=== PATIENT | male | born 1970 | race Caucasian/White ===

== ENCOUNTER 2016-12-17 10:51 | Inpatient (IN) | payer MEDICAID, OTHER ==
[~2016-12-17] VITALS: Ht 167.6 cm; Wt 70.0 kg
[2016-12-17] VITALS (7 sets, daily range): BP systolic 102–151; BP diastolic 59–89; PULSE 48–65; RESP 18–20; TEMP 98.7; Ht 167.6 cm; Wt 70.0 kg
[~2016-12-17 10:51] MED LIST: ASPI-781 PO; ATOR40TA68 PO; CLOP75TA27 PO; INSU100C3 SC; LANT3I SC; MECL25TA2 PO; METF500T4 PO; METO-448 PO
[2016-12-17 11:18] LABS: BASOPHILS % 0.5 % (0.0-2.0); EOSINOPHILS % 0.3 % (0.0-7.0); HEMATOCRIT 43.3 % (42.0-52.0); HEMOGLOBIN 15.6 g/dl (14.0-18.0); LYMPHOCYTES # 1.3 10^3/ul (0.8-2.9); LYMPHOCYTES % 16.6 % (15.0-51.0); MEAN CORPUSCULAR HEMOGLOBIN 30.4 pg (29.0-33.0); MEAN CORPUSCULAR VOLUME 84.4 fl (82.0-101.0); MONOCYTE # 0.3 10^3/ul (0.3-0.9); MONOCYTES % 4.4 % (0.0-11.0); NEUTROPHILS % 77.9 % (39.0-77.0); PLATELET COUNT 202 10^3/UL (140-415); RED BLOOD COUNT 5.13 10^6/ul (4.70-6.10); RED CELL DISTRIBUTION WIDTH 12.1 % (11.5-14.5); WHITE BLOOD COUNT 7.7 10^3/ul (4.8-10.8)
[2016-12-17 11:36] LABS: INR 0.96; PROTIME 12.8 Sec (12.2-14.2)
[2016-12-17 11:37] LABS: PARTIAL THROMBOPLASTIN TIME 23.1 Sec (25.0-35.0)
[2016-12-17 11:43] LABS: ALANINE AMINOTRANSFERASE 34 IU/L (13-69); ALBUMIN 4.5 g/dl (3.3-4.9); ALBUMIN/GLOBULIN RATIO 1.55; ALKALINE PHOSPHATASE 103 IU/L (42-121); ANION GAP 21 (8-16); ASPARTATE AMINO TRANSFERASE 19 IU/L (15-46); BILIRUBIN,INDIRECT 0.6 mg/dl (0-1.1); BILIRUBIN,TOTAL 0.6 mg/dl (0.2-1.3); BLOOD UREA NITROGEN 16 mg/dl (7-20); CALCIUM 9.5 mg/dl (8.4-10.2); CARBON DIOXIDE 24 mmol/L (21-31); CHLORIDE 104 mmol/L (97-110); GLUCOSE 306 mg/dl (70-220); POTASSIUM 3.5 mmol/L (3.5-5.1); SODIUM 145 mmol/L (135-144); TOTAL PROTEIN 7.4 g/dl (6.1-8.1)
--- NOTE | 2016-12-17 11:51 | RADRPT ---
PROCEDURE: XR Chest. CLINICAL INDICATION: Stroke. Dyspnea. TECHNIQUE: Single frontal chest x-ray. COMPARISON: 03/06/2015 FINDINGS: The lungs are clear of acute infiltrates, edema, effusions, or masses.. The cardiomediastinal silho uette is unremarkable. The osseous structures are intact. IMPRESSION: No acute cardiopulmonary disease. RPTAT: GG .Fabrice Almanza MD, Date Time Electronically viewed and signed by .Fabrice Almanza MD, on 12/17/2016 11:51 .L/
--- NOTE | 2016-12-17 11:57 | RADRPT ---
PROCEDURE: CT Head without intravenous contrast. CLINICAL INDICATION: Possible stroke. Headache, dizziness, nausea. COMPARISON: None relevant listed. TECHNIQUE: Axial CT images from skull base to vertex with coronal and sagittal reformats. DOSE: The estimated administered radiation dose was CTDI vol = 43 mGy and DLP = 630 mGy-cm. One or more of the following dose reduction techniques were used: automated exposure control, adjustment of the mA and/or kV according to patient size, or use of iterative reconstruction. FINDINGS: Parenchyma: No acute hemorrhage, large territorial infarction, or mass. Subtle mineralization within the right lentiform nucleus with average density 35 Hounsfield (series 2, image 9). Mild generalize d cerebral and cerebellar volume loss. Ventricles: No hydrocephalus or ventricular effacement. Extra-axial spaces: No herniation or midline shift. Paranasal sinuses: Clear. Mastoid air cells: Clear. Visualized orbits: Normal. Vessels: Mild atherosclerotic plaque is present. Bones: Normal. Extracranial soft tissues: Normal. Additional comment: None. IMPRESSION: No acute hemorrhage or large territorial infarction. RPTAT: PP Physician Abhilash Date Time Electronically viewed and signed by Physician Abhilash on 12/17/2016 11:56 LG/
[2016-12-17 12:03] LABS: TROPONIN-I < 0.012 ng/ml (0.00-0.12)
[2016-12-17] MEDS ORDERED: ASPIRIN 325 MG TAB PO ONE (13:00)
[2016-12-17] MEDS ORDERED: SOD CHLORIDE 0.9% 1,000 ML IV STA (13:45)
--- NOTE | 2016-12-17 13:45 | ERA ---
ER Documentation Chief Complaint Date/Time DATE: 12/17/16 TIME: 13:39 Chief Complaint Weakness HPI 46-year-old male with a history of hypertension, diabetes mellitus type 2, coronary artery disease status post PCI, vertigo and CVA with mild residual left facial numbness presents the ED complaining of dizziness, weakness and ataxia. Upon awakening this morning felt dizzy and had difficulty walking. He went to meet family who noticed that he was stumbling and then fell forward hitting the front of his head. There was no loss of consciousness. Denies neck pain. Complains of ongoing dizziness and lightheadedness which is not exacerbated by head movement. No visual changes, focal weakness or numbness. Patient feels that his speech is not as clear as usual but family feels he is at baseline. Denies tinnitus or hearing changes. No chest pain or palpitations. No abdominal pain, nausea or vomiting. No URI symptoms or cough. ROS All systems reviewed and are negative except as per history of present illness. Medications Home Meds Active Scripts Meclizine Hcl* (Antivert*) 25 Mg Tablet, 25 MG PO Q6H Y for dizziness, #20 TAB Prov:JERRY ESCOTO MD 04/03/15 Atorvastatin* (Atorvastatin*) 40 Mg Tablet, 40 MG PO HS for 30 Days, TAB Prov:ELISABETH SIDHU NP 03/08/15 Metformin Hcl* (Metformin Hcl*) 500 Mg Tablet, 500 MG PO AC MEALS AND BEDTIME for 30 Days, TAB Prov:ELISABETH SIDHU NP 03/08/15 Insulin Aspart (Novolog) 100 U/Ml Cartridge, 5 UNITS SC AC MEALS for 30 Days, EA Prov:ELISABETH SIDHU NP 03/08/15 Insulin Glargine* (Lantus*) 100 Unit/Ml Soln, 20 UNIT SC HS for 30 Days Prov:ELISABETH SIDHU NP 03/08/15 Metoprolol Tartrate* (Lopressor*) 25 Mg Tab, 25 MG PO BID for 30 Days, TAB Prov:ELISABETH SIDHU NP 03/08/15 Clopidogrel Bisulfate (Clopidogrel) 75 Mg Tab, 75 MG PO DAILY for 30 Days Prov:ELISABETH SIDHU NP 03/08/15 Aspirin* (Ecotrin*) 325 Mg Tabec, 325 MG PO DAILY for 30 Days Prov:ELISABETH SIDHU NP 03/08/15 Allergies Allergies: Coded Allergies: No Known Allergy (Unverified , 03/06/15) PMhx/Soc Reviewed in chart. As per HPI. History of Surgery: Yes (Stent x2) Anesthesia Reaction: No Hx Neurological Disorder: Yes (CVA in 2016) Hx Respiratory Disorders: No Hx Cardiac Disorders: Yes (STEMI x2) Hx Psychiatric Problems: No Hx Miscellaneous Medical Probl: No Hx Alcohol Use: No Hx Substance Use: No Hx Tobacco Use: Yes Smoking Status: Current some day smoker FmHx No stroke, cancer or sudden cardiac Physical Exam Vitals Vital Signs Date Time Temp Pulse Resp B/P Pulse Ox O2 Delivery O2 Flow Rate FiO2 12/17/16 11:29 97.7 78 19 139/103 100 12/17/16 11:10 Nasal Cannula Physical Exam Const: Alert, cooperative. Moderate distress. Head: Forehead abrasion. Negative aguirre sign. Eyes: Normal Conjunctiva. Pupils equal reactive to light, extraocular movements are intact. No nystagmus. ENT: Normal External Ears, Nose and Mouth. Neck: Full range of motion. Nontender. No meningismus. No JVD.Carotids 2+ bilaterally without bruits. Resp: Clear to auscultation bilaterally Cardio: Regular rate and rhythm, no murmurs Abd: Soft, non tender, non distended. Normal bowel sounds, No masses. Skin: No petechiae or rashes Back: No midline or flank tenderness Ext: No cyanosis, or edema. Pulses 4+ in all extremities Neur: Awake and alert. Cranial nerves II through XII are grossly intact. No pronator drift. Ataxic gait Psych: Normal Mood and Affect Result Diagram: 12/17/16 1055 12/17/16 1055 Results 24 hrs Laboratory Tests Test 12/17/16 10:55 12/17/16 11:19 White Blood Count 7.710^3/ul Red Blood Count 5.1310^6/ul Hemoglobin 15.6g/dl Hematocrit 43.3% Mean Corpuscular Volume 84.4fl Mean Corpuscular Hemoglobin 30.4pg Mean Corpuscular Hemoglobin Concent 36.0g/dl Red Cell Distribution Width 12.1% Platelet Count 76592^3/UL Mean Platelet Volume 11.0fl Neutrophils % 77.9% Lymphocytes % 16.6% Monocytes % 4.4% Eosinophils % 0.3% Basophils % 0.5% Nucleated Red Blood Cells % 0.0/100WBC Neutrophils # 6.010^3/ul Lymphocytes # 1.310^3/ul Monocytes # 0.310^3/ul Eosinophils # 0.010^3/ul Basophils # 0.010^3/ul Nucleated Red Blood Cells # 0.010^3/ul Prothrombin Time 12.8Sec Prothrombin Time Ratio 1.0 INR International Normalized Ratio 0.96 Activated Partial Thromboplast Time 23.1Sec Sodium Level 145mmol/L Potassium Level 3.5mmol/L Chloride Level 104mmol/L Carbon Dioxide Level 24mmol/L Anion Gap 21 Blood Urea Nitrogen 16mg/dl Creatinine 0.90mg/dl Glucose Level 306mg/dl Calcium Level 9.5mg/dl Total Bilirubin 0.6mg/dl Direct Bilirubin 0.00mg/dl Indirect Bilirubin 0.6mg/dl Aspartate Amino Transf (AST/SGOT) 19IU/L Alanine Aminotransferase (ALT/SGPT) 34IU/L Alkaline Phosphatase 103IU/L Troponin I < 0.012ng/ml Total Protein 7.4g/dl Albumin 4.5g/dl Globulin 2.90g/dl Albumin/Globulin Ratio 1.55 Bedside Glucose 297mg/dL Current Medications Medications (Trade) Dose Ordered Sig/Wendi Route PRN Reason Start Time Stop Time Status Last Admin Dose Admin Aspirin (Aspirin) 325 mg ONCE ONCE PO 12/17/16 13:00 12/17/16 13:01 DC 12/17/16 13:03 Ondansetron HCl (Zofran Inj) 4 mg ER BRIDGE PRN IV NAUSEA AND/OR VOMITING 12/17/16 14:00 12/18/16 13:59 Acetaminophen 650 mg 650 mg ER BRIDGE PRN PO MILD PAIN/FEVER 12/17/16 14:00 12/18/16 13:59 Sodium Chloride (NS) 1,000 ml @ 1,000 mls/hr Q1H STAT IV 12/17/16 13:45 12/17/16 14:44 DC EKG: TIME: 10:50. Sinus rhythm. Q waves in 2 [address]VF[address] No acute ST segment elevation or depression. No ectopy. EP Interpretation: Abnormal EKG. IMAGING: PROCEDURE: CT Head without intravenous contrast. CLINICAL INDICATION: Possible stroke. Headache, dizziness, nausea. COMPARISON: None relevant listed. TECHNIQUE: Axial CT images from skull base to vertex with coronal and sagittal reformats. DOSE: The estimated administered radiation dose was CTDI vol = 43 mGy and DLP = 630 mGy-cm. One or more of the following dose reduction techniques were used: automated exposure control, adjustment of the mA and/or kV according to patient size, or use of iterative reconstruction. FINDINGS: Parenchyma: No acute hemorrhage, large territorial infarction, or mass. Subtle mineralization within the right lentiform nucleus with average density 35 Hounsfield (series 2, image 9). Mild generalized cerebral and cerebellar volume loss. Ventricles: No hydrocephalus or ventricular effacement. Extra-axial spaces: No herniation or midline shift. Paranasal sinuses: Clear. Mastoid air cells: Clear. Visualized orbits: Normal. Vessels: Mild atherosclerotic plaque is present. Bones: Normal. Extracranial soft tissues: Normal. Additional comment: None. IMPRESSION: No acute hemorrhage or large territorial infarction. RPTAT: PP Physician Abhilash Date Time Electronically viewed and signed by Physician Abhilash on 12/17/2016 11: 56 LG/ Procedures/MDM DOCUMENTS REVIEWED: ED nurse, prior ED, prior records MEDICAL DECISION MAKIN-year-old male with a history of hypertension, coronary artery disease status post PCI, vertigo and CVA with mild residual left facial numbness presents the ED complaining of dizziness, weakness and ataxia. H/O vertigo but presenting symptoms not consistent with peripheral vertigo. Possible CVA. As patient awoke with the symptoms, last known normal is greater than 12 hours ago when he went to sleep, hence no indication for thrombolytics or endovascular intervention. No CT evidence of acute hemorrhage, infarct, mass or hydrocephalus. No cardiac dysrhythmia. Diabetes out of control without DKA or HONK treated with IV hydration. Admit to telemetry for further evaluation and management including MRI, carotid dopplers and neuro consultation. CRITICAL CARE TIME: Due to the high probability of sudden clinically significant neurologic deterioration, this patient with weakness, ataxia and possible acute CVA required multiple, frequent reevaluations of vital signs and response to therapy. Additional critical care time was spent in interpretations of relevant clinical data, obtaining supplemental history from family, review of medical records and consultation with the admitting physician Dr. Cornelius Bautista. TOTAL CRITICAL CARE TIME:35 minutes not including other separately reportable procedures. Counseled patient and family regarding diagnosis, diagnostic results and plan for admission. CALLS/CONSULTS: Time 12:55, Dr. Cornelius Bautista, Recommends admission to telemetry. PATIENT CARE TRANSITIONED: Time: 13:25, Dr. Cornelius Bautista. Departure Diagnosis: Primary Impression: Acute weakness Additional Impressions: Ataxia Diabetes mellitus out of control Qualified Code: E11.8 - Uncontrolled type 2 diabetes mellitus with complication, without long-term current use of insulin H/O right coronary artery stent placement H/O: CVA (cerebrovascular accident) Condition: Serious BRIANA BURNS MD Dec 17, 2016 13:45
[2016-12-17] MEDS ORDERED: ONDANSETRON 4 MG INJ IV PRN (14:00)
[2016-12-17] MEDS ORDERED: ACETAMINOPHEN 325 MG TAB PO PRN (14:00)
[2016-12-17] MEDS ORDERED: INSULIN ASPART [NOVOLOG] 3 ML PEN SC SCH (17:25)
[2016-12-17] MEDS ORDERED: GLUCOSE GEL 15 GRAM TUBE PO PRN ×2 (17:30)
[2016-12-17] MEDS ORDERED: GLUCAGON 1 MG INJ IM PRN (17:30)
[2016-12-17] MEDS ORDERED: GLUCOSE GEL 15 GRAM TUBE BUCCAL PRN (17:30)
[2016-12-17] MEDS ORDERED: DEXTROSE 50% 50 ML SYRINGE IV PRN ×2 (17:30)
[2016-12-17] MEDS ORDERED: MECLIZINE 25 MG TAB PO PRN (17:30)
[2016-12-17] MEDS: INSULIN ASPART [NOVOLOG] 3 ML PEN SC SCH ×3 (18:50→21:00)
[2016-12-17] MEDS ORDERED: GLIP5TAB13 PO (19:00)
[2016-12-17] MEDS ORDERED: EZET10TA3 PO (19:00)
[2016-12-17] MEDS ORDERED: GABA300C16 PO (19:00)
[2016-12-17] MEDS: ATORVASTATIN 40 MG TAB PO SCH (21:27)
[2016-12-17] MEDS: GABAPENTIN 300 MG CAP PO SCH (21:27)
[2016-12-17] MEDS: METOPROLOL 25 MG TAB PO SCH (21:27)
[2016-12-17] MEDS: INSULIN GLARGINE [LANtus] 3 ML PEN SC SCH (21:40)
[2016-12-18] VITALS (12 sets, daily range): BP systolic 102–187; BP diastolic 59–79; PULSE 54–71; RESP 16–20
[2016-12-18] MEDS ORDERED: ACCU-CHEK XX SCH (02:00)
[2016-12-18] MEDS: ACCU-CHEK XX SCH (02:00)
[2016-12-18 06:27] LABS: BASOPHIL # 0.1 10^3/ul (0.0-0.1); BASOPHILS % 0.6 % (0.0-2.0); EOSINOPHILS # 0.1 10^3/ul (0.0-0.5); EOSINOPHILS % 0.9 % (0.0-7.0); HEMATOCRIT 42.7 % (42.0-52.0); HEMOGLOBIN 14.5 g/dl (14.0-18.0); LYMPHOCYTES # 2.2 10^3/ul (0.8-2.9); LYMPHOCYTES % 27.3 % (15.0-51.0); MEAN CORPUSCULAR HEMOGLOBIN 29.7 pg (29.0-33.0); MEAN CORPUSCULAR VOLUME 87.3 fl (82.0-101.0); MEAN PLATELET VOLUME 10.7 fl (7.4-10.4); MONOCYTE # 0.6 10^3/ul (0.3-0.9); MONOCYTES % 7.2 % (0.0-11.0); NEUTROPHIL # 5.2 10^3/ul (1.6-7.5); NEUTROPHILS % 63.8 % (39.0-77.0); PLATELET COUNT 188 10^3/UL (140-415); RED BLOOD COUNT 4.89 10^6/ul (4.70-6.10); RED CELL DISTRIBUTION WIDTH 12.5 % (11.5-14.5); WHITE BLOOD COUNT 8.1 10^3/ul (4.8-10.8)
[2016-12-18 06:47] LABS: CALCIUM 9.1 mg/dl (8.4-10.2); CREATININE 0.92 mg/dl (0.61-1.24)
[2016-12-18 06:59] LABS: POTASSIUM 3.4 mmol/L (3.5-5.1)
[2016-12-18] MEDS: INSULIN ASPART [NOVOLOG] 3 ML PEN SC SCH ×7 (07:55→21:00)
[2016-12-18] MEDS: ASPIRIN (EC) 325 MG TAB PO SCH (08:15)
[2016-12-18] MEDS: GABAPENTIN 300 MG CAP PO SCH ×2 (08:15→20:17)
[2016-12-18] MEDS: EZETIMIBE 10 MG TAB PO SCH (08:15)
[2016-12-18] MEDS: CLOPIDOGREL 75 MG TAB PO SCH (08:15)
[2016-12-18] MEDS: METOPROLOL 25 MG TAB PO SCH ×2 (08:16→20:17)
--- NOTE | 2016-12-18 13:39 | HP ---
Date/Time of Note Date/Time of Note DATE: 12/18/16 TIME: 13:35 Assessment/Plan VTE Prophylaxis VTE Prophylaxis Intervention: other Lines/Catheters [facility] Saline Lock Urinary Cath still in place: No Assessment/Plan Chief Complaint/Hosp Course 1) ataxia - head CT negative - await head MRI - consult neurology 2) diabetes - monitor blood sugar, continue home meds 3) CAD - appears stable at this time Problems: HPI/ROS Admit Date/Time Admit Date/Time Dec 17, 2016 at 13:37 Hx of Present Illness Patient with hypertension, diabetes, coronary artery disease, previous cerebrovascular accident comes in with ataxia and dizziness. Patient denies any loss of consciousness. Patient's previous stroke caused weakness of left side. Patient is currently doing better, able to ambulate. PMH/Family/Social Past Medical History Medical History: coronary artery disease, diabetes, hypertension Social History Alcohol Use: rarely Smoking Status: Current some day smoker Exam/Review of Systems Vital Signs Vitals Vital Signs Date Time Temp Pulse Resp B/P Pulse Ox O2 Delivery O2 Flow Rate FiO2 12/18/16 12:39 57 12/18/16 11:27 98.6 18 118/79 97 12/17/16 15:55 Room Air Intake and Output 12/17/16 12/17/16 12/18/16 15:00 23:00 07:00 Intake Total 250 ml Output Total 350 ml Balance -100 ml Exam Constitutional: well developed Head: atraumatic, normocephalic Neck: supple Respiratory: clear to auscultation Cardiovascular: regular rate and rhythm Gastrointestinal: non-tender, soft Extremities: normal pulses Labs Result Diagram: 12/18/16 0556 12/18/16 0556 Medications Medications Current Medications Aspirin (Ecotrin) 325 mg DAILY PO Last administered on 12/18/16 08:15; Admin Dose 325 MG; Start 12/18/16 at 09:00 Atorvastatin Calcium (Lipitor) 40 mg HS PO Last administered on 12/17/16 21:27 ; Admin Dose 40 MG; Start 12/17/16 at 21:00 Clopidogrel Bisulfate (plaVIX) 75 mg DAILY PO Last administered on 12/18/16 08: 15; Admin Dose 75 MG; Start 12/18/16 at 09:00 Insulin Glargine (Lantus) 20 unit HS SC Last administered on 12/17/16 21:40; Admin Dose 20 UNIT; Start 12/17/16 at 21:00 Meclizine HCl (Antivert) 25 mg Q6H PRN PO dizziness; Start 12/17/16 at 17:30 Metoprolol Tartrate (Lopressor) 25 mg BID PO Last administered on 12/18/16 08: 16; Admin Dose 25 MG; Start 12/17/16 at 21:00 Diagnostic Test (Pha) (Accu-Chek) 1 ea 02 XX ; Start 12/18/16 at 02:00 Miscellaneous Information 1 ea NOTE XX ; Start 12/17/16 at 17:30 Glucose (Glutose) 15 gm Q15M PRN PO DECREASED GLUCOSE; Start 12/17/16 at 17:30 Glucose (Glutose) 22.5 gm Q15M PRN PO DECREASED GLUCOSE; Start 12/17/16 at 17:30 Dextrose (D50w Syringe) 25 ml Q15M PRN IV DECREASED GLUCOSE; Start 12/17/16 at 17:30 Dextrose (D50w Syringe) 50 ml Q15M PRN IV DECREASED GLUCOSE; Start 12/17/16 at 17:30 Glucagon (Glucagen) 1 mg Q15M PRN IM DECREASED GLUCOSE; Start 12/17/16 at 17:30 Glucose (Glutose) 15 gm Q15M PRN BUCCAL DECREASED GLUCOSE; Start 12/17/16 at 17: 30 EZETIMIBE (Zetia) 10 mg DAILY PO Last administered on 12/18/16 08:15; Admin Dose 10 MG; Start 12/18/16 at 09:00 Gabapentin (Neurontin) 300 mg BID PO Last administered on 12/18/16 08:15; Admin Dose 300 MG; Start 12/17/16 at 21:00 ARASH COBOS Dec 18, 2016 13:39
--- NOTE | 2016-12-18 19:43 | RADRPT ---
PROCEDURE: MR Brain with contrast. CLINICAL INDICATION: Brain lab preoperative evaluation. Weakness and ataxia TECHNIQUE: Limited postcontrast T1-weighted axial imaging number for preoperative planning. 10 ml M agnevist nonionic intravenous contrast was administered without complication. COMPARISON: None FINDINGS: Wedge-shaped focus of restricted diffusion in the right posterior inferior cerebellar hemisphere (PI CA territory) compatible with acute / early subacute ischemic infarct. No other evidence of cerebra l infarction. Remote lacunar infarct in the left cerebellar hemisphere. There is no evidence of intr acranial hemorrhage, mass effect, or midline shift. No extra-axial fluid collections are seen. No hypointense signal abnormalities are seen on the GRE images to suggest the presence of blood degr adation products. The remaining brain parenchyma is normal in signal intensity and morphology with preservation of gra y white differentiation . Age appropriate size of the ventricles and subarachnoid spaces. The remaining posterior fossa contents, brainstem, seventh - eighth cranial nerve complexes, pituita ry axis, orbits, paranasal sinuses, and mastoid air cells are unremarkable. Normal flow voids are visible in the proximal intracranial arteries and dural sinuses, indicating pa tency. IMPRESSION: 1. Acute / early subacute infarct right inferior cerebellar hemisphere (PICA territory). This of ed patti, mass effect, or shift. No hemorrhagic transformation. Of the left cerebellar hemisphere lacun ar infarct. 2. No other acute intracranial abnormality or pathologic enhancement. RPTAT:AAJJ Physician Dnonie Date Time Electronically viewed and signed by Physician Donnie on 12/18/2016 19:42 MARKIE/
[2016-12-18] MEDS: ATORVASTATIN 40 MG TAB PO SCH (20:17)
[2016-12-18] MEDS: INSULIN GLARGINE [LANtus] 3 ML PEN SC SCH (20:21)
[2016-12-19] VITALS (11 sets, daily range): BP systolic 114–161; BP diastolic 69–82; PULSE 51–76; RESP 16–18
[2016-12-19] MEDS: ACCU-CHEK XX SCH (02:00)
[2016-12-19] MEDS: INSULIN ASPART [NOVOLOG] 3 ML PEN SC SCH ×7 (07:55→20:14)
[2016-12-19] MEDS: ASPIRIN (EC) 325 MG TAB PO SCH (08:27)
[2016-12-19] MEDS: CLOPIDOGREL 75 MG TAB PO SCH (08:27)
[2016-12-19] MEDS: GABAPENTIN 300 MG CAP PO SCH ×2 (08:27→20:11)
[2016-12-19] MEDS: EZETIMIBE 10 MG TAB PO SCH (08:28)
[2016-12-19] MEDS: METOPROLOL 25 MG TAB PO SCH ×2 (08:28→20:12)
--- NOTE | 2016-12-19 11:47 | PN ---
Date/Time of Note Date/Time of Note DATE: 12/19/16 TIME: 11:46 Assessment/Plan VTE Prophylaxis VTE Prophylaxis Intervention: other Lines/Catheters IV [facility] Saline Lock Urinary Cath still in place: No Assessment/Plan Chief Complaint/Hosp Course 1) ataxia - head MRI show cerebellar CVA - await neurology consult 2) diabetes - monitor blood sugar, continue home meds 3) CAD - appears stable at this time Problems: Subjective 24 Hr Interval Summary Free Text/Dictation Patient wants to leave Exam/Review of Systems Vital Signs Vitals Vital Signs Date Time Temp Pulse Resp B/P Pulse Ox O2 Delivery O2 Flow Rate FiO2 12/19/16 11:21 98.5 66 18 121/73 97 12/17/16 15:55 Room Air Intake and Output 12/18/16 12/18/16 12/19/16 15:00 23:00 07:00 Intake Total 450 ml 300 ml Output Total 650 ml Balance -200 ml 300 ml Exam Constitutional: well developed Head: atraumatic, normocephalic Neck: supple Respiratory: clear to auscultation Cardiovascular: regular rate and rhythm Gastrointestinal: non-tender, soft Extremities: normal pulses Results Result Diagram: 12/18/16 0556 12/18/16 0556 Results 24 hrs Laboratory Tests Test 12/18/16 11:53 12/18/16 17:14 12/18/16 20:16 12/19/16 07:54 Bedside Glucose 188 195 145 132 Medications Medications Current Medications Aspirin (Ecotrin) 325 mg DAILY PO Last administered on 12/19/16 08:27; Admin Dose 325 MG; Start 12/18/16 at 09:00 Atorvastatin Calcium (Lipitor) 40 mg HS PO Last administered on 12/18/16 20:17 ; Admin Dose 40 MG; Start 12/17/16 at 21:00 Clopidogrel Bisulfate (plaVIX) 75 mg DAILY PO Last administered on 12/19/16 08: 27; Admin Dose 75 MG; Start 12/18/16 at 09:00 Insulin Glargine (Lantus) 20 unit HS SC Last administered on 12/18/16 20:21; Admin Dose 20 UNIT; Start 12/17/16 at 21:00 Meclizine HCl (Antivert) 25 mg Q6H PRN PO dizziness; Start 12/17/16 at 17:30 Metoprolol Tartrate (Lopressor) 25 mg BID PO Last administered on 12/19/16 08: 28; Admin Dose 25 MG; Start 12/17/16 at 21:00 Diagnostic Test (Pha) (Accu-Chek) 1 ea 02 XX ; Start 12/18/16 at 02:00 Miscellaneous Information 1 ea NOTE XX ; Start 12/17/16 at 17:30 Glucose (Glutose) 15 gm Q15M PRN PO DECREASED GLUCOSE; Start 12/17/16 at 17:30 Glucose (Glutose) 22.5 gm Q15M PRN PO DECREASED GLUCOSE; Start 12/17/16 at 17:30 Dextrose (D50w Syringe) 25 ml Q15M PRN IV DECREASED GLUCOSE; Start 12/17/16 at 17:30 Dextrose (D50w Syringe) 50 ml Q15M PRN IV DECREASED GLUCOSE; Start 12/17/16 at 17:30 Glucagon (Glucagen) 1 mg Q15M PRN IM DECREASED GLUCOSE; Start 12/17/16 at 17:30 Glucose (Glutose) 15 gm Q15M PRN BUCCAL DECREASED GLUCOSE; Start 12/17/16 at 17: 30 EZETIMIBE (Zetia) 10 mg DAILY PO Last administered on 12/19/16 08:28; Admin Dose 10 MG; Start 12/18/16 at 09:00 Gabapentin (Neurontin) 300 mg BID PO Last administered on 12/19/16 08:27; Admin Dose 300 MG; Start 12/17/16 at 21:00 ARASH COBOS Dec 19, 2016 11:47
[2016-12-19 15:08] LABS: CALCIUM 9.1 mg/dl (8.4-10.2); CHOL/HDL RATIO 5.1 RATIO; CREATININE 0.83 mg/dl (0.61-1.24); POTASSIUM 4.3 mmol/L (3.5-5.1)
[2016-12-19] MEDS: ATORVASTATIN 40 MG TAB PO SCH (20:11)
[2016-12-19] MEDS: INSULIN GLARGINE [LANtus] 3 ML PEN SC SCH (20:14)
[2016-12-20 01:01] VITALS: PULSE 64
[2016-12-20] MEDS: ACCU-CHEK XX SCH (02:00)
[2016-12-20 04:00] VITALS: BP 120/73; RESP 18
[2016-12-20 04:41] VITALS: PULSE 62
[2016-12-20 07:40] VITALS: BP 132/74; RESP 18
[2016-12-20] MEDS: INSULIN ASPART [NOVOLOG] 3 ML PEN SC SCH ×2 (07:56)
[2016-12-20] MEDS: EZETIMIBE 10 MG TAB PO SCH (08:15)
[2016-12-20] MEDS: CLOPIDOGREL 75 MG TAB PO SCH (08:15)
[2016-12-20] MEDS: ASPIRIN (EC) 325 MG TAB PO SCH (08:15)
[2016-12-20] MEDS: GABAPENTIN 300 MG CAP PO SCH (08:15)
[2016-12-20] MEDS: METOPROLOL 25 MG TAB PO SCH (08:16)
[2016-12-20 08:30] VITALS: PULSE 61
[2016-12-20 11:20] VITALS: BP 134/84; RESP 18
--- NOTE | 2016-12-20 11:48 | PN ---
Date/Time of Note Date/Time of Note DATE: 12/20/16 TIME: 11:46 Assessment/Plan VTE Prophylaxis VTE Prophylaxis Intervention: other Lines/Catheters IV [facility] Type (from [facility]): Saline Lock Urinary Cath still in place: No Assessment/Plan Chief Complaint/Hosp Course 1) ataxia - head MRI show cerebellar CVA - await neurology consult 2) diabetes - monitor blood sugar, continue home meds 3) CAD - appears stable at this time Problems: Subjective 24 Hr Interval Summary Free Text/Dictation Patient is frustrated and wants to go home. Exam/Review of Systems Vital Signs Vitals Vital Signs Date Time Temp Pulse Resp B/P Pulse Ox O2 Delivery O2 Flow Rate FiO2 12/20/16 11:20 98.5 81 18 134/84 97 12/17/16 15:55 Room Air Intake and Output 12/19/16 12/19/16 12/20/16 15:00 23:00 07:00 Intake Total 1000 ml 500 ml Balance 1000 ml 500 ml Exam Constitutional: well developed Head: atraumatic, normocephalic Neck: supple Respiratory: clear to auscultation Cardiovascular: regular rate and rhythm Gastrointestinal: non-tender, soft Extremities: normal pulses Results Result Diagram: 12/18/16 0556 12/19/16 1426 Results 24 hrs Laboratory Tests Test 12/19/16 14:26 12/19/16 20:10 12/20/16 02:09 12/20/16 07:49 Sodium Level 143 Potassium Level 4.3 Chloride Level 103 Carbon Dioxide Level 27 Anion Gap 17 H Blood Urea Nitrogen 12 Creatinine 0.83 Glucose Level 195 Calcium Level 9.1 Triglycerides Level 101 Cholesterol Level 154 LDL Cholesterol, Calculated 104 HDL Cholesterol 30 Cholesterol/HDL Ratio 5.1 Bedside Glucose 232 H 181 176 Medications Medications Current Medications Aspirin (Ecotrin) 325 mg DAILY PO Last administered on 12/20/16 08:15; Admin Dose 325 MG; Start 12/18/16 at 09:00 Atorvastatin Calcium (Lipitor) 40 mg HS PO Last administered on 12/19/16 20:11 ; Admin Dose 40 MG; Start 12/17/16 at 21:00 Clopidogrel Bisulfate (plaVIX) 75 mg DAILY PO Last administered on 12/20/16 08: 15; Admin Dose 75 MG; Start 12/18/16 at 09:00 Insulin Glargine (Lantus) 20 unit HS SC Last administered on 12/19/16 20:14; Admin Dose 20 UNIT; Start 12/17/16 at 21:00 Meclizine HCl (Antivert) 25 mg Q6H PRN PO dizziness; Start 12/17/16 at 17:30 Metoprolol Tartrate (Lopressor) 25 mg BID PO Last administered on 12/20/16 08: 16; Admin Dose 25 MG; Start 12/17/16 at 21:00 Diagnostic Test (Pha) (Accu-Chek) 1 ea 02 XX ; Start 12/18/16 at 02:00 Miscellaneous Information 1 ea NOTE XX ; Start 12/17/16 at 17:30 Glucose (Glutose) 15 gm Q15M PRN PO DECREASED GLUCOSE; Start 12/17/16 at 17:30 Glucose (Glutose) 22.5 gm Q15M PRN PO DECREASED GLUCOSE; Start 12/17/16 at 17:30 Dextrose (D50w Syringe) 25 ml Q15M PRN IV DECREASED GLUCOSE; Start 12/17/16 at 17:30 Dextrose (D50w Syringe) 50 ml Q15M PRN IV DECREASED GLUCOSE; Start 12/17/16 at 17:30 Glucagon (Glucagen) 1 mg Q15M PRN IM DECREASED GLUCOSE; Start 12/17/16 at 17:30 Glucose (Glutose) 15 gm Q15M PRN BUCCAL DECREASED GLUCOSE; Start 12/17/16 at 17: 30 EZETIMIBE (Zetia) 10 mg DAILY PO Last administered on 12/20/16 08:15; Admin Dose 10 MG; Start 12/18/16 at 09:00 Gabapentin (Neurontin) 300 mg BID PO Last administered on 12/20/16 08:15; Admin Dose 300 MG; Start 12/17/16 at 21:00 ARASH COBOS Dec 20, 2016 11:48
--- NOTE | 2016-12-21 08:05 | CONS ---
DATE OF SERVICE: 12/18/2016 HISTORY OF PRESENT ILLNESS: The patient is a 46-year-old male admitted to [facility] with a past medical history of diabetes, coronary artery disease. The patient admitted with new onset ataxia, gait difficulty, lack of balance. The patient had CT scan of head, followed by MRI which showed right posterior inferior cerebellar artery infarction, in which I got the call about him. MEDICATIONS: 1. Aspirin 325 mg once a day. 2. Plavix 75 mg once a day. 3. Zetia 10 mg once a day. 4. Lipitor 40 mg once a day. 5. Lantus insulin 20 units at night. 6. Lopressor 25 mg once a day. 7. twice a day. 8. Antivert 25 mg 3 times a day as needed. PAST MEDICAL HISTORY: 1. Coronary artery disease. 2. Diabetes. 3. Hyperlipidemia. 4. Hypertension. 5. Paresthesia. PHYSICAL EXAMINATION: GENERAL: The patient is alert, awake, oriented, following simple commands. Cranial nerve exam: 2, pupils equal on both sides. Cranial nerves 3, 4 and 6 each Decreased hearing bilaterally. Cranial nerves 9, 10 reveals Motor exam: Decreased right hand stem crusher 4+/5, sensation grade 4. intact. HEART: Regular rate and rhythm. LUNGS: Equal breath sounds. ABDOMEN: Soft. Nondistended. Nontender. ASSESSMENT: 1. [id number]-old with underlying acute cerebellar artery stroke. Will continue the Plavix 75 mg once a day. 2. Gait difficulty probably secondary to #1. Followup the patient with physical therapy and rehab. 3. Dyslipidemia. Continue the patient's Zetia 10 mg once a day. 4. High blood pressure. Keep the blood pressures between 140/90 to avoid extension of stroke. Continue the patient on Lopressor 25 mg. 5. Diabetic neuropathy. Continue the patient on gabapentin 300 mg twice a day. 6. Keep the patient on fall precautions and ambulating with physical therapy. Dictated By: Michael Back MD /erika/ /Document#: [id number]
== END 2016-12-20 11:53 | disposition left against medical advice (07) | DRG 66 ==
LOC: E/R 10:51 → TEL 13:37
PROVIDERS: ADMIT Internal Medicine; ATTEND Internal Medicine
DX: I63.531 Cerebral infarction due to unspecified occlusion or stenosis of right posterior cerebral artery (principal); E11.40 Type 2 diabetes mellitus with diabetic neuropathy, unspecified; R27.0 Ataxia, unspecified; I10 Essential (primary) hypertension; I25.10 Atherosclerotic heart disease of native coronary artery without angina pectoris; E11.65 Type 2 diabetes mellitus with hyperglycemia; E78.5 Hyperlipidemia, unspecified; I25.2 Old myocardial infarction; Z95.5 Presence of coronary angioplasty implant and graft; Z86.73 Personal history of transient ischemic attack (TIA), and cerebral infarction without residual deficits; Z79.82 Long term (current) use of aspirin; Z79.4 Long term (current) use of insulin
CPT/HCPCS: 36415; 70450; 70552; 71010; 80048; 80053; 80061; 82962; 83036; 84484; 85025; 85610; 85730; 93005; J1815; J7030

== ENCOUNTER 2018-03-02 10:52 | Inpatient (IN) | END 2018-03-05 10:47 | disposition home or self-care (01) | DRG 66 ==